=== PATIENT | male | born 1970 | race Caucasian/White ===

== ENCOUNTER 2017-05-14 17:48 | Emergency (ER) | payer BC ==
--- NOTE | 2017-05-14 17:56 | PDOC ---
History of Present Illness - General History Source: Patient Exam Limitations: No Limitations - History of Present Illness Initial Comments: 05/14/17 18:26 The patient is a 47 year old male, with significant past medical history of scoliosis, who presents today complaining of left sided back pain x2 days. He states that the pain progressively worsened since yesterday and has become crippling. The pain is exacerbated upon standing, coughing, yawning, and movement. It is alleviated when applying pressure to the tender point in his back. The patient reports that he exercises and stretches regularly, but has not been to the gym in the last 5 days. He also notes that he has not been drinking a lot of water lately. He notes that he experienced this pain 2 years ago at the same trigger point and was given morphine and a muscle relaxer, which provided relief. Denies any recent trauma or injury. Denies any urinary changes. Denies fever, chills, nausea, vomiting. Denies chest pain, SOB. Allergies: none reported Surgical Hx: rotator cuff surgery, hernia repairs Social Hx: No alcohol use. No tobacco use. 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 - Psycho/Social/Smoking Cessation Hx Anxiety: Yes (ON MEDS) Suicidal Ideation: No Smoking History: Never smoked Have you smoked in the past 12 months: No Information on smoking cessation initiated: No Hx Alcohol Use: No Drug/Substance Use Hx: No Substance Use Type: None <Jeff Scott - Last Filed: 05/14/17 18:50> - Past Medical History Allergies/Adverse Reactions: Allergies Allergy/AdvReac Type Severity Reaction Status Date / Time No Known Allergies Allergy Verified 05/14/17 17:54 Home Medications: Ambulatory Orders Cyclobenzaprine HCl [Flexeril -] 10 mg PO TID #30 tablet 12/22/14 Cyclobenzaprine HCl [Flexeril -] 10 mg PO TID #10 tablet 05/14/17 Naproxen [Naprosyn -] 500 mg PO BID #15 tablet 05/14/17 Review of Systems - Review of Systems Able to Perform ROS?: Yes Comments:: 05/14/17 18:27 CONSTITUTIONAL: No: Chills, Diaphoresis, Fever, Loss of Appetite HEENTM: No: Eye Pain, Blurred Vision, Nose Pain, Nose Bleeding RESPIRATORY: No: Cough, Orthopnea, Shortness of Breath, CARDIAC (ROS): No: Chest Pain, Edema, Irregular Heart Rate, Lightheadedness ABD/GI: No: Abd. Pain w/ defecation, Constipated, Diarrhea, Nausea, Vomiting, Indigestion MUSCULOSKELETAL: Yes: Left sided back pain No: Gout, Joint Pain, Joint Swelling , Joint Stiffness, Other INTEGUMENTARY: No: Bruising, Change in Color, Change in Hair/Nails, Dryness, Erythema, Flushing, Lesions, Lumps, Pallor, Pruritus, Rash, Sweating, Other NEUROLOGICAL: No: Headache, Numbness, Paresthesia, Tingling, Tremors, Weakness , Unsteady Gait Dizziness <Mary Mullerica - Last Filed: 05/14/17 18:26> *Physical Exam - Vital Signs Last Vital Signs Temp Pulse Resp BP Pulse Ox 98.1 F 88 18 129/78 100 05/14/17 17:49 05/14/17 17:49 05/14/17 17:49 05/14/17 17:49 05/14/17 17:49 - Physical Exam Comments: 05/14/17 18:27 GENERAL APPEARANCE: Yes: Appropriately Dressed, Nourished. No: Apparent Distress, HEENT: positive: EOMI, MARGO, Normal ENT Inspection, Normal Voice, TMs Normal, Pharynx Normal. NECK: positive: Trachea midline, Normal Thyroid, Supple. negative: Tender, Rigid, Carotid bruit, Decreased range of motion RESPIRATORY/CHEST: positive: Lungs Clear, Normal Breath Sounds CARDIOVASCULAR: positive: Regular Rate, Regular Rhythm, S1, S2. Gastrointestinal/Abdominal: positive: Normal Bowel Sounds, Flat, Soft. MUSCULOSKELETAL: positive: Tenderness in the upper left thoracic muscles. No spinous process tenderness. No rashes on his back. EXTREMITY: positive: Normal Capillary Refill, Normal Inspection, Normal Range of Motion. INTEGUMENTARY: positive: Normal Color, Dry, Warm. NEUROLOGIC: positive: oracle ebs developer II-XII NML intact, Fully Oriented, Alert, Normal Mood/ Affect, <Raquel Muller - Last Filed: 05/14/17 18:26> - Vital Signs Last Vital Signs Temp Pulse Resp BP Pulse Ox 98.1 F 88 18 129/78 100 05/14/17 17:49 05/14/17 17:49 05/14/17 17:49 05/14/17 17:49 05/14/17 17:49 <Jeff Scott - Last Filed: 05/14/17 18:50> ED Treatment Course - ADDITIONAL ORDERS Additional order review: 05/14/17 18:35 Neuro: strength 5+/5 b/l in UE and LE, no focal deficits, neg SLR test b/l Back: tenderness to left parathoracic muscles on palpation, no spinous process tenderness noted Skin: no rash noted Pt denies fever or procedures, no weakness numbness, or fall or trauma. Hurts more with movement. Took one Flexeril 2 days ago, felt a little better. Has not taken any NSAIDS. Plan: will treat with Valium and Toradol Send home with Naprosen and Flexeril If worsen return to ER Pt in agreement with plan No fever or sign of epidural abscess <Jeff Scott - Last Filed: 05/14/17 18:50> *DC/Admit/Observation/Transfer - Attestations Scribe Attestion: 05/14/17 18:28 Documentation prepared by MANGO Arriola, acting as biomedical engineering technologist for Jeff Scott MD. <Raquel Muller - Last Filed: 05/14/17 18:26> - Discharge Dispostion Admit: No <Jeff Scott - Last Filed: 05/14/17 18:50> Diagnosis at time of Disposition: Strain of thoracic spine Qualifiers: Encounter type: initial encounter Qualified Code(s): S29.019A - Strain of muscle and tendon of unspecified wall of thorax, initial encounter - Discharge Dispostion Condition at time of disposition: Good - Prescriptions Prescriptions: Cyclobenzaprine HCl [Flexeril -] 10 mg PO TID #10 tablet Naproxen [Naprosyn -] 500 mg PO BID #15 tablet - Patient Instructions Printed Discharge Instructions: DI for Thoracic Back Pain Additional Instructions: Ice, rest Flexeril 10 mg 3x/day as needed Naproxen 500mg 2x/day as needed If worsen return to ER
[2017-05-14 17:59] VITALS: BP 129/78; PULSE 88; TEMP 98.1; BMI 27.3
[2017-05-14] MEDS ORDERED: diazePAM 5 MG TABLET PO ONE (18:22)
[2017-05-14] MEDS ORDERED: KETOROLAC TROMETHAMINE 60 MG/2 ML VIAL IM ONE (18:23)
[2017-05-14] MEDS ORDERED: diazePAM 5 MG TABLET ONE (18:26)
[2017-05-14] MEDS ORDERED: KETOROLAC TROMETHAMINE 60 MG/2 ML VIAL ONE (18:26)
== END 2017-05-14 19:02 | disposition home or self-care (01) ==
LOC: FER 17:48
PROC: 3E0233Z Introduction of Anti-inflammatory into Muscle, Percutaneous Approach (ICD-10-PCS; principal; 2017-05-14)
DX: S29.019A Strain of muscle and tendon of unspecified wall of thorax, initial encounter (principal); X58.XXXA Exposure to other specified factors, initial encounter; Y93.9 Activity, unspecified; Y92.9 Unspecified place or not applicable; M41.9 Scoliosis, unspecified
CPT/HCPCS: 99281-25

== ENCOUNTER 2017-06-23 00:19 | Emergency (ER) | payer BC ==
[2017-06-23] MEDS ORDERED: RANITIDINE HCL 150 MG TABLET (FP) PO ONE (00:23)
[2017-06-23] MEDS ORDERED: methylPREDNISolone ACET (DEPO) 80 MG/1 ML VIAL IM ONE (00:23)
[2017-06-23 00:27] VITALS: BP 139/75; PULSE 80; TEMP 98.5; BMI 27.3
--- NOTE | 2017-06-23 00:28 | PDOC ---
History of Present Illness - General Chief Complaint: Allergic Reaction Stated Complaint: SWELLING AND ITCHING TO BOTH EYES Time Seen by Provider: 06/23/17 00:22 History Source: Patient Exam Limitations: No Limitations - History of Present Illness Initial Comments: 06/23/17 00:23 47 yo presents with angioedema of both eyelids. started yesterday... seemed to get better and then got worse tonight.... took a benadryl, and it did not help much. Very Itchy Timing/Duration: 24 hours Severity: moderate Modifying Factors: improves with: other (Nothing makes it worse or better) Past History - Past Medical History Allergies/Adverse Reactions: Allergies Allergy/AdvReac Type Severity Reaction Status Date / Time No Known Allergies Allergy Verified 06/23/17 00:20 Home Medications: Ambulatory Orders Diphenhydramine HCl [Benadryl -] 25 mg PO QID #40 capsule 06/23/17 Ranitidine HCl [Zantac] 300 mg PO TID #30 tablet 06/23/17 Psychiatric Problems: Yes (anxiety) - Psycho/Social/Smoking Cessation Hx Anxiety: Yes (ON MEDS) Suicidal Ideation: No Smoking History: Never smoked Have you smoked in the past 12 months: No Hx Alcohol Use: No Drug/Substance Use Hx: No Substance Use Type: None Review of Systems - Review of Systems Able to Perform ROS?: Yes Is the patient limited Kyrgyz proficient: No Constitutional: No: Symptoms Reported HEENTM: No: Symptoms Reported Respiratory: No: Symptoms reported Cardiac (ROS): No: Symptoms Reported ABD/GI: No: Symptoms Reported : No: Symptoms Reported Musculoskeletal: No: Symptoms Reported Integumentary: No: Symptoms Reported Neurological: No: Symptoms reported Psychiatric: No: Anxiety, Depression Endocrine: No: Symptoms Reported Hematologic/Lymphatic: No: Symptoms Reported All Other Systems: Reviewed and Negative *Physical Exam - Physical Exam HEENT: positive: EOMI, MARGO, Other (Conjunctiva and glove spared, angioedema of the eyelids and periorbital soft tissues // plenty of airway, tongue and posterior pharynx, lips all spared.) Neck: positive: Supple Respiratory/Chest: positive: Lungs Clear, Normal Breath Sounds. negative: Wheezing Cardiovascular: positive: Regular Rhythm, Regular Rate. negative: Murmur Gastrointestinal/Abdominal: positive: Normal Bowel Sounds, Flat, Soft Lymphatic: negative: Adenopathy, Tenderness Musculoskeletal: positive: Normal Inspection Extremity: positive: Normal Inspection Integumentary: positive: Normal Color, Dry, Warm. negative: Hives Neurologic: positive: metal tank erector II-XII NML intact, Fully Oriented, Alert, Normal Mood/ Affect *DC/Admit/Observation/Transfer Diagnosis at time of Disposition: Allergic angioedema Qualifiers: Encounter type: initial encounter Qualified Code(s): T78.3XXA - Angioneurotic edema, initial encounter - Discharge Dispostion Disposition: HOME Condition at time of disposition: Stable Admit: No - Prescriptions Prescriptions: Diphenhydramine HCl [Benadryl -] 25 mg PO QID #40 capsule Ranitidine HCl [Zantac] 300 mg PO TID #30 tablet - Patient Instructions Printed Discharge Instructions: DI for Eye Allergic Reaction, DI for Angioedema Additional Instructions: John Stanton this happened to you. Zantac and Benadryl are both over the counter. Take 300 mg pf Zantac twice a day. Benadryl 25-50mg four times a day. Return to us if any problems. Follow up with your doctor later this week, you may need a referral to an accounts receivable associate. Chun- Dr. Caleb Baca
[2017-06-23] MEDS ORDERED: RANITIDINE HCL 150 MG TABLET (FP) ONE (00:46)
== END 2017-06-23 00:55 | disposition home or self-care (01) ==
LOC: FER 00:19
PROC: 3E023NZ Introduction of Analgesics, Hypnotics, Sedatives into Muscle, Percutaneous Approach (ICD-10-PCS; principal; 2017-06-23)
DX: T78.3XXA Angioneurotic edema, initial encounter (principal); F41.9 Anxiety disorder, unspecified
CPT/HCPCS: 99281-25